=== PATIENT | male | born 2000 | race African-American/Black ===

== ENCOUNTER 2019-07-17 15:11 | Inpatient (IN) | payer OTHER ==
[~2019-07-17] VITALS: Ht 180.3 cm; Wt 84.7 kg
[2019-07-17] MEDS ORDERED: SULF1TAB93 PO (15:19)
[2019-07-17] MEDS ORDERED: [UNRECOGNIZED DRUG - OTHER] (15:19)
[2019-07-17 16:26] LABS: BASO % 0.2 % (0.0-1.0); EOS # 0.1 10^3/uL (0.0-0.5); EOS % 0.9 % (0.0-3.0); HEMATOCRIT 45.2 % (42.0-52.0); LYMPH # 1.7 10^3/uL (1.5-5.0); LYMPH % 30.4 % (24.0-44.0); MEAN CORPUSCULAR HEMOGLOBIN 29.4 pg (27.0-33.0); MEAN CORPUSCULAR HGB CONC 33.2 g/dl (32.0-36.5); MEAN CORPUSCULAR VOLUME 88.6 fl (80.0-96.0); MONO # 0.6 10^3/uL (0.0-0.8); MONO % 10.6 % (0.0-5.0); NEUTROPHILS # 3.3 10^3/uL (1.5-8.5); NEUTROPHILS % 57.7 % (36.0-66.0); PLATELET COUNT, AUTOMATED 199 10^3/uL (150-450); WHITE BLOOD COUNT 5.7 10^3/uL (4.0-10.0)
[2019-07-17] MEDS ORDERED: VANCOMYCIN HCL 1,000 MG, VIAL MATE ADAPTER 1 EACH in D5W 250 ML IV ONE ×2 (16:30→19:00)
[2019-07-17] MEDS ORDERED: IBUP1TAB7 PO (16:45)
[2019-07-17 16:53] LABS: BLOOD UREA NITROGEN 16 MG/DL (7-18); C REACTIVE PROTEIN QUANTITATIV 1.85 MG/DL (0.00-0.30); CALCIUM LEVEL 8.5 MG/DL (8.5-10.1); CARBON DIOXIDE LEVEL 29 MEQ/L (21-32); CHLORIDE LEVEL 106 MEQ/L (98-107); CREATININE FOR GFR 0.92 MG/DL (0.70-1.30); GLUCOSE, FASTING 80 MG/DL (70-100); POTASSIUM SERUM 4.6 MEQ/L (3.5-5.1); SODIUM LEVEL 139 MEQ/L (136-145)
[2019-07-17 17:04] LABS: ERYTHROCYTE SEDIMENTATION RATE 3 mm/hr (0-15)
--- NOTE | 2019-07-17 17:08 | REP ---
LEFT FOREARM: Two views. There is no evidence of an acute fracture, dislocation or intrinsic bone disease. No osseous destruction or periosteal reaction is seen. IMPRESSION: No fracture or dislocation. Electronically Signed by Scott Clark MD 07/18/2019 09:57 A
--- NOTE | 2019-07-17 17:09 | REP ---
LEFT HAND, FOUR VIEWS: There is no evidence of an acute fracture, dislocation or intrinsic bone disease. There is no evidence of osseous destruction or periosteal reaction. IMPRESSION: No fracture or dislocation. Electronically Signed by Scott Clark MD 07/18/2019 09:57 A
--- NOTE | 2019-07-17 17:43 | ER ---
DATE OF CONSULTATION: 07/17/2019 CHIEF COMPLAINT: Left forearm pain and swelling. The patient states that since last Tuesday he has had increased pain and swelling localized to the back side of his wrist. He does not recall the start of it. He thinks he may have had a spider bite. He states his pain is actually quite minimal to 1 or 2 out of 10 and it is dull and sore in nature. It is made worse with any soft of lifting and pulling. He was initially seen in [facility] yesterday Dr. Easton, the [facility] orthopedic physician, who actually did a local irrigation and debridement after lancing an abscess. He took cultures at that time. He received intravenous (IV) antibiotics and was discharged home with Bactrim. Since that time, the patient states that he has had no fever, and his pain has been controlled, but the redness decreased the night of and increased this morning. After re-evaluation by Dr. Easton in his office, he was sent to [facility] Emergency Room (ER). Patient states that he denies any fevers or chills. States he has had some mild nausea. He states his fingertips feel a little numb and tingly, but this has been going on and off. He is right-hand dominant. A complete 10-system review was conducted. Pertinent positives and negatives in the history of present illness (HPI). All other systems negative. Patient does not have any past medical history. Patient does not take any medications. Past surgical history includes a tonsillectomy. ALLERGIES: No known drug allergies. SOCIAL HISTORY: He states he is a social drinker. Smokes occasionally and has prior drug use but not currently. PHYSICAL EXAMINATION: The patient is awake, alert, and oriented, well dressed. Appropriate affect. Breathing unlabored on room air. Normocephalic, atraumatic. Left upper extremity, there is about a 1 cm laceration on the dorsal aspect of the forearm just proximal to the wrist crease. There is mild erythema spreading from that site distally down to his metacarpophalangeals (MCPs) and proximally up near the elbow. He is mildly tender to palpation throughout the entire arm. He is able to make a composite fist with minimal pain. His sensation is intact to light touch in superficial sensory branch of radial nerve, median nerve, and ulnar nerve. posterior interosseous nerve (PIN), and ulnar motor nerve function. Radial pulses 2+, regular rate. There is no crepitus or abscess or fluctuance appreciated. Unable to express any significant drainage from the lancing site. Right upper extremity: No tender to palpation. Full active range of motion of the fingers, wrist and elbow. Skin is intact. Positive AIN, PIN, and ulnar motor nerve function. Radial pulse 2+, regular rate. Sensation intact to light touch in superficial sensory branch of radial nerve, median nerve, and ulnar nerve. DIAGNOSES: Left forearm cellulitis status post lancing of abscess. I discussed with the patient, his father, and ER staff that I would recommend him being admitted to medicine for IV antibiotics for cellulitis. At this point, there is no urgent orthopedic intervention. Will continue to monitor him, but I recommend broad-spectrum antibiotics. I also recommend obtaining the [place] culture results from the ER from yesterday to help choose specific antibiotics, at which point Medicine can decide to consult infectious disease if they feel it is necessary. I also recommend initial blood work of complete blood count (CBC), erythrocyte sedimentation rate (ESR), C-reactive protein (CRP) and also x-rays of the wrist and forearm to look for foreign body. At this point, patient should elevate and rest his forearm. Ice as needed. He shall do three times a day soaks for about 15 minutes each in soapy water where he milks the lancing site to try to express any sort of drainage. I will check on him again tomorrow morning to evaluate his response to the IV antibiotics. Patient expressed understanding and agreement to this plan, and this was conveyed to the ER staff.
--- NOTE | 2019-07-17 18:10 | HPEPDOC ---
[facility] Medical History & Physical Date of Admission Jul 17, 2019 Date of Service: Jul 17, 2019 Attending Physician: NAYE TAVARES MD History and Physical CHIEF COMPLAINT: Cellulitis HISTORY OF PRESENT ILLNESS: 19-year-old male with no significant past medical history presents with worsening left forearm cellulitis. He reports questionable bite josie 1 week ago with surrounding erythema, went to urgent care, was prescribed Bactrim and discharged. Patient has been taking Bactrim for the past week, reports worsening erythema, went to [facility] yesterday, underwent I&D. He followed up today in the clinic, was sent to [facility] for inpatient IV antibiotics. Patient evaluated by Dr. Wade who also recommends medical management and IV antibiotics at this time. Patient reports swelling and eryt sylvia of left forearm without any other associated symptoms. He denies any sick contacts, came from [place] last week, denies hiking or outdoor activities, reports surfing last week. No one else at home or school with similar presentation. He denies short of breath, chest pain, nausea, vomiting, abdominal pain or diarrhea. 10 point review of system is negative except for above PAST MEDICAL HISTORY: 1. None. PAST SURGICAL HISTORY: 1. Tonsillectomy. SOCIAL HISTORY: Intermittent smoker. Denies alcohol. Denies drug use FAMILY HISTORY: No family history of heart disease ALLERGIES: Please see below. HOME MEDICATIONS: Please see below. PHYSICAL EXAMINATION: VITAL SIGNS: Please see below. GENERAL: No distress HEENT: Normocephalic, atraumatic, moist mucous membranes NECK: Supple CARDIOVASCULAR EXAMINATION: S1, S2, no murmurs RESPIRATORY EXAMINATION: Clear to auscultation, no wheezing ABDOMINAL EXAMINATION: Soft, nontender, nondistended, positive bowel sounds EXTREMITIES: Left forearm with central I&D location and surrounding erythema stretching from the wrist to elbow, erythema is mild, but has edema out of proportion to what would be expected, no tenderness to palpation SKIN: No rash NEUROLOGICAL EXAMINATION: Alert and oriented 3, no focal deficits PSYCHIATRIC EXAMINATION: Calm and cooperative LABORATORY DATA: See below. IMAGING: X-rays negative for bone involvement MICROBIOLOGY: Please see below. ASSESSMENT: 19-year-old male with no significant past medical history, being admitted for worsening cellulitis. PLAN: 1. Cellulitis with abscess. Status post I&D yesterday, has been treated with Bactrim for 6 days, continue vancomycin and doxycycline, will monitor progression of cellulitis. Vital Signs Vital Signs Date Time Temp Pulse Resp B/P (MAP) Pulse Ox O2 Delivery O2 Flow Rate FiO2 07/17/19 16:18 148/72 (97) 07/17/19 15:12 98.0 55 18 100 Room Air Laboratory Data Labs 24H Laboratory Tests 2 07/17/19 16:09: Immature Granulocyte % (Auto) 0.2, Neutrophils (%) (Auto) 57.7, Lymphocytes (%) (Auto) 30.4, Monocytes (%) (Auto) 10.6H, Eosinophils (%) (Auto) 0.9, Basophils (%) (Auto) 0.2, Neutrophils # (Auto) 3.3, Lymphocytes # (Auto) 1.7, Monocytes # (Auto) 0.6, Eosinophils # (Auto) 0.1, Basophils # (Auto) 0.0, Nucleated Red Blood Cells % (auto) 0.0, Erythrocyte Sedimentation Rate 3, Anion Gap 4L, Calcium Level 8.5, C-Reactive Protein, Quantitative 1.85H CBC/BMP Laboratory Tests 07/17/19 16:09 Microbiology Microbiology 07/17/19 Blood Culture, Received Pending 07/17/19 Blood Culture, Received Pending Home Medications Scheduled Sulfamethoxazole/Trimethoprim (Sulfamethoxazole-Tmp Ds Tablet) 1 Each Tablet, 1 TAB PO BID FILLED 07/16/19 FOR 5 DAYS Scheduled PRN Ibuprofen (Ibuprofen) 800 Mg Tablet, 800 MG PO TID PRN for PAIN Allergies Coded Allergies: No Known Allergies (Unverified , 07/17/19) A-FIB/CHADSVASC A-FIB History Current/History of A-Fib/PAF?: No NAYE TAVARES MD Jul 17, 2019 18:10
--- NOTE | 2019-07-17 18:56 | PHACANCOPD ---
PHARMACY VANCOMYCIN DOSING Pt Demographics Demographics Patient Age:19 , Weight:84.700 , Gender: male Adjusted Body Weight Date: 07/17/19, Adjusted Body Weight: [79.06] Kg Events Past 24 Hours Events Past 24 Hours: NO: Dialysis, Diuretic Therapy, Change in CrCl, Fever, Elevation in WBC, Pending Diagnostics, Pending Procedures, Other Vancomycin Vancomycin indication: CELLULITIS Vancomycin Target Ranges: 15-20 mcg/ml Vancomycin Load Y/N: Yes Load Dose Date Time Vancomycin Load Dose: 2G Date: 07/17/19 Time: 1700 Vancomycin Dose Date: 07/17/19. Current Vancomycin Dose: [1G IV Q8H] Intermittent Dosing?: No Labs Labs Item Value Date Time White Blood Count 5.7 10^3/uL 07/17/19 1609 Neutrophils # (Auto) 3.3 10^3/uL 07/17/19 1609 Creatinine 0.92 MG/DL 07/17/19 1609 Micro Microbiology 07/17/19 Blood Culture, Received Pending 07/17/19 Blood Culture, Received Pending Creatinine Clearance Date:07/17/19. Creatinine Clearance: [136.4ML/MIN]. Pending Labs TROUGH 07/18/19 @1600 Assessment and Plan Maintaining Current Dose?: Yes Reason for dose change: No Dose Change Pharmacist Note Pharmacist Note Date: 07/17/19. Pharmacist note:Pt is a 19 year old male being treated for cellulitis goal trough 15-20mcg/ml. The patient has not been treated with vancomycin here at [facility] in the past. To achieve goal the patient will receive a 2g loading dose started in the ER 07/17 @ 17. Maintenance therapy will consist of 1g iv every 8 hours. A trough is scheduled 07/18/19 @16:00. We will continue to monitor and adjust the dose as needed. [facility] Jul 17, 2019 18:56
[2019-07-17 20:10] VITALS: BP 141/64
[2019-07-17] MEDS: ACETAMINOPHEN TAB 650MG DOSE (2X325MG) PO PRN (20:21)
[2019-07-17] MEDS: DOXYCYCLINE HYCLATE 100 MG TAB PO SCH (20:22)
[2019-07-18] MEDS: VANCOMYCIN HCL 1,000 MG, VIAL MATE ADAPTER 1 EACH in D5W 250 ML IV SCH ×2 (01:46→09:00)
[2019-07-18] MEDS: ACETAMINOPHEN TAB 650MG DOSE (2X325MG) PO PRN (01:47)
[2019-07-18 05:45] VITALS: BP 134/85
[2019-07-18 06:01] LABS: HEMATOCRIT 42.6 % (42.0-52.0); HEMOGLOBIN 14.3 g/dl (13.5-17.5); MEAN CORPUSCULAR HEMOGLOBIN 29.5 pg (27.0-33.0); MEAN CORPUSCULAR HGB CONC 33.6 g/dl (32.0-36.5); MEAN CORPUSCULAR VOLUME 87.8 fl (80.0-96.0); PLATELET COUNT, AUTOMATED 194 10^3/uL (150-450); RED BLOOD COUNT 4.85 10^6/uL (4.30-6.10); WHITE BLOOD COUNT 6.3 10^3/uL (4.0-10.0)
[2019-07-18 06:29] LABS: ALBUMIN 3.1 GM/DL (3.2-5.2); ALT/SGPT 15 U/L (12-78); BILIRUBIN,TOTAL 0.5 MG/DL (0.2-1.0); BLOOD UREA NITROGEN 16 MG/DL (7-18); CALCIUM LEVEL 8.3 MG/DL (8.5-10.1); CARBON DIOXIDE LEVEL 27 MEQ/L (21-32); CHLORIDE LEVEL 106 MEQ/L (98-107); GLUCOSE, FASTING 85 MG/DL (70-100); MAGNESIUM LEVEL 1.6 MG/DL (1.8-2.4); POTASSIUM SERUM 4.1 MEQ/L (3.5-5.1); SODIUM LEVEL 137 MEQ/L (136-145)
[2019-07-18] MEDS: DOXYCYCLINE HYCLATE 100 MG TAB PO SCH (08:24)
[2019-07-18] MEDS: MAG SULF 1GM/100ML (MAG RUN) 1 GM in IV 1 EA IV SCH ×3 (09:10→13:12)
[2019-07-18] MEDS ORDERED: AUGM875T28 PO (14:47)
--- NOTE | 2019-07-18 14:51 | DS.PDOC ---
Discharge Summary General Date of Admission Jul 17, 2019 at 18:01 Date of Discharge 07/18/2019 Attending Physician: NAYE TAVARES MD Discharge Summary PROCEDURES PERFORMED DURING STAY: None. ADMITTING DIAGNOSES: 1. Cellulitis with abscess. DISCHARGE DIAGNOSES: 1. Cellulitis with abscess. COMPLICATIONS/CHIEF COMPLAINT: Cellulitis. HISTORY OF PRESENT ILLNESS: 19-year-old male with no significant past medical history, was admitted for cellulitis with abscess. He has had cellulitis for about one week, underwent I&D 2 days ago, admitted at [facility] yesterday for IV antibiotics. Patient was significant improvement in left forearm erythema and edema, without any complaints today, clinically and hemodynamically stable for discharge with outpatient oral antibiotics. Abscess cultures from [place] are preliminarily growing gram-negative rods, blood cultures negative to date. Patient will be discharged on Augmentin for 5 days to complete at least 10 days of antibiotics. HOSPITAL COURSE: As above. DISCHARGE MEDICATIONS: Please see below. PHYSICAL EXAMINATION: VITAL SIGNS: Please see below. GENERAL: No distress HEENT: Normocephalic, atraumatic, moist mucous membranes NECK: Supple CARDIOVASCULAR EXAMINATION: S1, S2, no murmurs RESPIRATORY EXAMINATION: Clear to auscultation, no wheezing ABDOMINAL EXAMINATION: Soft, nontender, nondistended, positive bowel sounds EXTREMITIES: Range of motion intact SKIN: No rash NEUROLOGICAL EXAMINATION: Alert and oriented 3, no focal deficits PSYCHIATRIC EXAMINATION: Calm and cooperative ALLERGIES: Please see below. LABORATORY DATA: Please see below. IMAGING: None PROGNOSIS: Good ACTIVITY: As tolerated. DIET: Regular DISCHARGE PLAN: Patient will follow-up with PCP in 1-2 weeks DISPOSITION: Home. DISCHARGE INSTRUCTIONS: 1. As above. DISCHARGE CONDITION: Stable. TIME SPENT ON DISCHARGE: Greater than 20 minutes. Vital Signs/I&Os Vital Signs Date Time Temp Pulse Resp B/P (MAP) Pulse Ox O2 Delivery O2 Flow Rate FiO2 07/18/19 05:45 97.5 60 18 134/85 (101) 97 Room Air I&O- Last 24 Hours up to 6 AM 07/18/19 06:00 Intake Total 510 ml Output Total 0 ml Balance 510 ml Laboratory Data Labs 24H Laboratory Tests 2 07/17/19 16:09: Immature Granulocyte % (Auto) 0.2, Neutrophils (%) (Auto) 57.7, Lymphocytes (%) (Auto) 30.4, Monocytes (%) (Auto) 10.6H, Eosinophils (%) (Auto) 0.9, Basophils (%) (Auto) 0.2, Neutrophils # (Auto) 3.3, Lymphocytes # (Auto) 1.7, Monocytes # (Auto) 0.6, Eosinophils # (Auto) 0.1, Basophils # (Auto) 0.0, Nucleated Red Blood Cells % (auto) 0.0, Erythrocyte Sedimentation Rate 3, Anion Gap 4L, Calcium Level 8.5, C-Reactive Protein, Quantitative 1.85H 07/18/19 05:38: Nucleated Red Blood Cells % (auto) 0.0, Anion Gap 4L, Calcium Level 8.3L, Magnesium Level 1.6L, Total Bilirubin 0.5, Aspartate Amino Transf (AST/SGOT) 10, Alanine Aminotransferase (ALT/SGPT) 15, Alkaline Phosphatase 59, Total Protein 6.0L, Albumin 3.1L, Albumin/Globulin Ratio 1.07 CBC/BMP Laboratory Tests 07/17/19 16:09 07/18/19 05:38 Microbiology Microbiology 07/17/19 Blood Culture, Received Pending 07/17/19 Blood Culture, Received Pending Discharge Medications Scheduled Amoxicillin/Potassium Clav (Augmentin 875-125 Tablet) 1 Each Tablet, 1 TAB PO BID Scheduled PRN Ibuprofen (Ibuprofen) 800 Mg Tablet, 800 MG PO TID PRN for PAIN, (Reported) Allergies Coded Allergies: No Known Allergies (Unverified , 07/17/19) NAYE TAVARES MD Jul 18, 2019 14:51
== END 2019-07-18 15:40 | disposition home or self-care (01) | DRG 603 ==
LOC: M ED 15:11 → M ED INP 18:01 → M MS5PR 19:59
PROVIDERS: ADMIT Internal Medicine; ATTEND Internal Medicine
DX: L03.112 Cellulitis of left axilla (principal); F17.200 Nicotine dependence, unspecified, uncomplicated; L02.412 Cutaneous abscess of left axilla